=== PATIENT | female | born 1945 | race Caucasian/White ===

== ENCOUNTER 2020-05-19 20:11 | Emergency (ER) | payer MEDICARE ==
--- NOTE | 2020-05-19 20:56 | RAD ---
TWO VIEW CHEST: 05/19/20 HISTORY: Dizziness. Lung hendricks are clear. No infiltrate identified. Heart and mediastinum unremarkable. IMPRESSION: No acute findings. POS: AGW
[2020-05-19 21:32] LABS: #Basophils 0.1 thou/uL (0.0-0.2); #Lymphocytes 1.3 thou/uL (1.20-3.40); #Monocytes 0.5 thou/uL (0.11-0.59); #Neutrophils 5.4 thou/uL (1.40-6.50); %Basophils 0.8 % (0.0-1.0); %Eosinophils 0.7 % (0.0-10.0); %Lymphocytes 17.9 % (21.0-51.0); %Monocytes 6.8 % (0.0-10.0); %Neutrophils 73.8 % (42.0-75.0); Hemoglobin 13.1 g/dL (12.0-16.0); Mean Corpuscular HGB CONC 33.8 g/dL (32.0-36.0); Mean Corpuscular Hemoglobin 31.4 pg (27.0-31.0); Mean Corpuscular Volume 92.8 fL (78.0-98.0); Mean Platelet Volume 7.3 fL (7.4-10.4); Platelet Count 296 thou/uL (130-400); Red Blood Cell (RBC) Count 4.16 mill/uL (4.20-5.40); White Blood Cell (WBC) Count 7.3 thou/uL (4.8-10.8)
[2020-05-19] MEDS ORDERED: Aspirin Chewable 81 MG TAB ONE (21:53)
[2020-05-19] MEDS ORDERED: Nitroglycerin 2% Ointment 1 INCH/1 GM Packet ONE (21:53)
[2020-05-19 21:54] LABS: ALT (SGPT) 85 U/L (8-55); AST (SGOT) 163 U/L (5-34); Albumin 4.1 g/dL (3.4-4.8); Alkaline Phosphatase 114 U/L (40-110); Anion Gap 16 mmol/L (10-20); BUN (Urea Nitrogen) 18 mg/dL (9.8-20.1); Bilirubin, Total 0.5 mg/dL (0.2-1.2); CK (CPK) 624 U/L (29-168); Calc. Creatinine Clearance 0 mL/min (70-130); Calcium 9.1 mg/dL (7.8-10.44); Carbon Dioxide 24 mmol/L (23-31); Chloride 104 mmol/L (98-107); Estimated GFR-MDRD 55; Globulin 2.8 g/dL (2.4-3.5); Glucose 96 mg/dL (83-110); Potassium 3.6 mmol/L (3.5-5.1); Protein, Total 6.9 g/dL (6.0-8.3); Sodium 140 mmol/L (136-145)
[2020-05-20 09:38] LABS: SARS-CoV-2 MS2 Positive; SARS-CoV-2 N Gene Negative; SARS-CoV-2 S Gene Negative; SARS-CoV-2 by NAA Not Detected (NotDetected); SARS-CoV-2 orf1ab Negative
--- NOTE | 2020-05-21 15:35 | EKG ---
Test Reason : Blood Pressure : / mmHG Vent. Rate : 073 BPM Atrial Rate : 073 BPM P-R Int : 202 ms QRS Dur : 146 ms QT Int : 416 ms P-R-T Axes : 067 001 119 degrees QTc Int : 458 ms Sinus rhythm with occasional Premature ventricular complexes and Premature atrial complexes Left bundle branch block --chronic Abnormal ECG Confirmed by JEREMI HERNANDEZ, FREDRICK De Paz ([id number]), web content editor FELA DSOUZA ([id number]) on 05/21/2020 3:35:22 PM Referred By: Confirmed By:FREDRICK BLOOD MD
== END 2020-05-19 23:10 | disposition short-term general hospital (02) ==
LOC: ERS 20:11
DX: I20.8 Other forms of angina pectoris (principal); R06.02 Shortness of breath; Z20.828 Contact with and (suspected) exposure to other viral communicable diseases; I10 Essential (primary) hypertension; Z79.899 Other long term (current) drug therapy
CPT/HCPCS: 71046; 80053; 82550; 83880; 84484; 85025; 93005; 99285; U0003; 36415; 87635